=== PATIENT | female | born 1945 | race Caucasian/White ===

== ENCOUNTER → 2020-07-16 18:42 | Outpatient (ROUT) | payer OTHER, SELFPAY ==
[2020-07-16 19:23] LABS: Alanine Aminotransferase 27 IU/L (<35); Albumin 4.2 g/dL (3.5-5.0); Albumin Globulin Ratio 1.7 (1.0-2.8); Alkaline Phosphatase 44 U/L (38-126); Aspartate Aminotransferase 37 IU/L (14-36); BUN Creatinine Ratio 34.5 (6-22); Bilirubin Total 0.3 mg/dL (0.2-1.3); Blood Urea Nitrogen 20 mg/dL (7-17); Calcium 9.5 mg/dL (8.4-10.2); Carbon Dioxide 26 mmol/L (22-32); Chloride 107 mmol/L (98-107); Estimated Glomerular Filt Rate > 60.0 mL/min (>60); Globulin 2.5 g/dL (1.7-4.1); Glucose 135 mg/dL (80-110); HEMOLYSIS < 15 (0-50); Potassium 4.2 mmol/L (3.4-5.1); Sodium 138 mmol/L (137-145); Total Protein 6.7 g/dL (6.3-8.2)
[2020-07-16 19:38] LABS: Vitamin D 25 Hydroxy (D3) 102 ng/mL (30.0-100.0)
== END ==
PROVIDERS: Visit Provider Internal Medicine
DX: M81.0 Age-related osteoporosis without current pathological fracture (principal)
CPT/HCPCS: 80053; 82306

== ENCOUNTER → 2020-09-13 11:10 | Outpatient (CLI) | payer OTHER, SELFPAY ==
--- NOTE | 2020-09-13 | DI.MG.S_ITS ---
UNILATERAL RIGHT DIGITAL SCREENING MAMMOGRAM 3D/2D WITH CAD POST MASTECTOMY: 09/13/2020 CLINICAL: Routine screening. Personal history of left breast cancer. Comparison is made to exams dated: 03/28/2019 mammogram, 03/17/2018 mammogram, and 02/10/2017 mammogram - outside facility. There are scattered fibroglandular elements in right breast. Current study was also evaluated with a Computer Aided Detection (CAD) system. There are biopsy clips in the right breast. No significant masses, calcifications, or other findings are seen in the breast. There has been no significant interval change. IMPRESSION: NEGATIVE There is no mammographic evidence of malignancy. A 1 year screening mammogram is recommended. This exam was interpreted at Station ID: [id number]. NOTE: For mammograms, a report in lay terms will be sent to the patient. Approximately 15% of breast malignancies will not be visualized mammographically. In the management of a palpable breast mass, a negative mammogram must not discourage biopsy of a clinically suspicious lesion. Electronically Signed By: Ioana mackey/anjel:09/13/2020 12:19:03 letter sent: Normal Exam ACR BI-RADS Category 1: Negative 3341F
== END ==
PROVIDERS: PCP Internal Medicine; Referring Provider Internal Medicine; Visit Provider Internal Medicine
DX: Z12.31 Encounter for screening mammogram for malignant neoplasm of breast (principal); Z85.3 Personal history of malignant neoplasm of breast
CPT/HCPCS: 77063; 77067

== ENCOUNTER → 2021-02-20 10:12 | Outpatient (CLI) | payer OTHER, SELFPAY ==
--- NOTE | 2021-02-20 | DI.RAD.S_ITS ---
PROCEDURE: XR DEXA AXIAL SKELETON INDICATIONS: Age-related osteoporosis without current pathologi COMPARISON: None. FINDINGS: This blank DEXA report has been sent in error by the PACS system. The correct and complete report will be forthcoming in 1-2 days. Thank you for your patience and understanding. Dictated by: Lis Taylor MD, PhD on 02/20/2021 at 12:29 Approved by: Lis Taylor MD, PhD on 02/20/2021 at 12:29
== END ==
PROVIDERS: PCP Internal Medicine; Referring Provider Internal Medicine; Visit Provider Internal Medicine
DX: M85.851 Other specified disorders of bone density and structure, right thigh (principal); Z78.0 Asymptomatic menopausal state; Z85.3 Personal history of malignant neoplasm of breast
CPT/HCPCS: 77080

== ENCOUNTER → 2021-07-07 14:05 | Outpatient (CLI) | payer OTHER, SELFPAY ==
--- NOTE | 2021-07-07 14:08 | DI.RAD.S_ITS ---
PROCEDURE: XR TIBIA FIBULA LT 2V INDICATIONS: LEFT LEG PAIN TECHNIQUE: 2 views of the tibia and fibula were acquired. COMPARISON: None. FINDINGS: Bones: No fractures or dislocations. No suspicious bony lesions. Soft tissues: No suspicious soft tissue calcifications or masses. IMPRESSION: No acute fracture. No osseous lesion. If symptoms and/or clinical suspicion for pathology persist, further assessment with repeat, or advanced imaging (e.g., CT, MRI, or bone scan) may be helpful for further assessment. Dictated by: Chrissy Lowery M.D. on 07/07/2021 at 15:54 Approved by: Chrissy Lowery M.D. on 07/07/2021 at 16:52
== END ==
PROVIDERS: PCP Internal Medicine; Referring Provider Internal Medicine; Visit Provider Internal Medicine
DX: M79.605 Pain in left leg (principal)
CPT/HCPCS: 73590

== ENCOUNTER → 2021-09-18 10:02 | Outpatient (CLI) | payer OTHER, SELFPAY ==
--- NOTE | 2021-09-18 | DI.MG.S_ITS ---
UNILATERAL RIGHT DIGITAL SCREENING MAMMOGRAM 3D/2D WITH CAD: 09/18/2021 CLINICAL: Routine screening. Family history of breast cancer. Comparison is made to exams dated: 09/13/2020 mammogram - [facility], 03/28/2019 mammogram, and 03/17/2018 mammogram - outside facility. There are scattered fibroglandular elements in right breast. Current study was also evaluated with a Computer Aided Detection (CAD) system. There are biopsy clips in the right breast. No significant masses, calcifications, or other findings are seen in the breast. There has been no significant interval change. IMPRESSION: NEGATIVE There is no mammographic evidence of malignancy. A 1 year screening mammogram is recommended. This exam was interpreted at Station ID: [id number]. NOTE: For mammograms, a report in lay terms will be sent to the patient. Approximately 15% of breast malignancies will not be visualized mammographically. In the management of a palpable breast mass, a negative mammogram must not discourage biopsy of a clinically suspicious lesion. Electronically Signed By: Alvarez chambers/anjel:09/18/2021 11:24:48 letter sent: Normal Exam ACR BI-RADS Category 1: Negative 3341F
== END ==
PROVIDERS: PCP Internal Medicine; Referring Provider Internal Medicine; Visit Provider Internal Medicine
DX: Z12.31 Encounter for screening mammogram for malignant neoplasm of breast (principal); Z80.3 Family history of malignant neoplasm of breast
CPT/HCPCS: 77063; 77067

== ENCOUNTER 2022-08-27 08:36 | Day surgery (SDC) | payer OTHER, SELFPAY ==
[2022-08-27 08:59] VITALS: BP 171/79; PULSE 76; RESP 16; TEMP 36.2; O2SAT 96; BMI 21.7
[2022-08-27] MEDS: LACTATED RINGERS 1,000 ML 100 ML IV (09:06)
--- NOTE | 2022-08-27 09:59 | P.HP_ITS ---
History of Present Illness History of Present Illness Date Patient Seen: 08/27/22 Time Patient Seen: 09:59 Chief complaint: Colonoscopy Narrative: Sarahi is a 68-year-old woman here for colonoscopy. Her last 1 was about 5 years ago and she believes to polyps were removed. No known family history of colon cancer. ON LICENSE OF [facility] Medical History (Updated 08/27/22 @ 10:01 by Jude Davis MD) Allergies (~1966) Alopecia (~1979) Anxiety Breast cancer (~1984) Chicken pox Chronic back pain (~1976) Depression Glaucoma Hearing loss Hyperlipidemia Measles Osteopenia (~2021) Osteoporosis (~1989) Pancreatic cancer (~1994) Rosacea (~1979) Shoulder pain (~2011) Vision disorder Surgical History (Updated 07/06/22 @ 20:08 by Ruba Cool) Anesthesia History of breast reconstruction (~1989) History of cholecystectomy (~1994) History of left mastectomy (~1984) History of reduction surgery of right breast (~1989) History of tubal ligation (~1973) History of Whipple procedure (~1994) Family History (Updated 07/06/22 @ 20:10 by Ruba Cool) Mother Hypertension Sister Hypertension Son Cirrhosis Social History household members: spouse Smoking Status: Never smoker alcohol intake: current Meds Home Medications and Allergies Home Medications Medication Instructions Recorded Confirmed Type calcium carbonate 400 mg calcium 400 mg PO DAILY 07/07/22 08/27/22 History (1,000 mg) chewable tablet (Antacid Ultra Strength) cholecalciferol (vitamin D3) 50 50 mcg PO DAILY 07/07/22 08/27/22 History mcg (2,000 unit) capsule coenzyme Q10 75 mg capsule (Ultra 75 mg PO DAILY 07/07/22 08/27/22 History CoQ10) mecobalamin (vitamin B12) 500 mcg 500 mcg PO 07/07/22 07/07/22 History chewable tablet melatonin 5 mg capsule 2.5 mg PO 07/07/22 07/07/22 History rosuvastatin 5 mg tablet 5 mg PO DAILY #90 tabs 07/07/22 08/27/22 Rx timolol maleate 0.5 % eye drops 2 drp EYE-BOTH DAILY 07/07/22 08/27/22 History Allergies Allergy/AdvReac Type Severity Reaction Status Date / Time almond Allergy Swelling Verified 08/27/22 08:55 of Lip/Tongue/Throat Exam Vital Signs (past 8 hours): - 08/27/22 08:59 Temperature 97.2 F L Pulse Rate 76 Respiratory Rate 16 Blood Pressure 171/79 H Pulse Oximetry 96 Oxygen Delivery Method Room Air Oxygen Delivery Method Room Air Const General: healthy appearing Assessment & Plan Assessment and plan (1) History of colon polyps: Status: Acute Plan Sarahi is a 68-year-old woman here for colonoscopy. We reviewed the risks and benefits and she would like to proceed
--- NOTE | 2022-08-27 10:31 | PM.OP.COLON ---
Operative Date/Time/Diagnoses Date of procedure: 08/27/22 Time of procedure: 10:31 Pre-op diagnosis: Colon cancer screening Post-op diagnosis: same Procedure & Clinicians Study performed: Colonoscopy Same procedure as scheduled: Yes Surgeon: Jude Davis Procedure Notes Procedure in detail: Surgeon: Jude Davis MD Anesthesia: Geraldo Pineda CRNA Procedure: The patient was brought to the endoscopy suite, placed in left lateral decubitus position. The patient was connected to monitoring devices. A time-out was performed. Sedation was administered. Once the patient was adequately sedated, a digital rectal exam was performed and was normal. The scope was then inserted and advanced to the cecum where the appendiceal orifice was identified and photographed. The scope was then slowly withdrawn over greater than 6 minutes. The mucosa was thoroughly inspected. There were a few scattered diverticula in the sigmoid colon. The scope was retroflexed in the rectum. No other abnormalities were seen. The scope was straightened and removed. The patient was awakened and brought to recovery. Scope withdrawal time: 7 minutes Sedation time: 17 minutes EBL: 0 Findings: Rare scattered diverticula in the sigmoid Post-procedure Disposition: PACU
[2022-08-27 10:34] VITALS: BP 114/64; PULSE 70; RESP 14; TEMP 36.4; O2SAT 99
[2022-08-27 10:40] VITALS: BP 127/69; PULSE 73; RESP 14; TEMP 36.4; O2SAT 100
[2022-08-27 10:46] VITALS: BP 134/74; PULSE 72; RESP 14; TEMP 36.3; O2SAT 99
[2022-08-27 10:49] VITALS: BP 132/74; PULSE 70; RESP 16; TEMP 36.3; O2SAT 100
== END 2022-08-27 10:55 | disposition home or self-care (01) ==
PROVIDERS: PCP Family Medicine; Referring Provider Surgery; Visit Provider Surgery
PROC: 0DJD8ZZ Inspection of Lower Intestinal Tract, Via Natural or Artificial Opening Endoscopic (ICD-10-PCS; CPT 45378; principal; 2022-08-27 09:45)
DX: Z12.11 Encounter for screening for malignant neoplasm of colon (principal); K57.30 Diverticulosis of large intestine without perforation or abscess without bleeding
CPT/HCPCS: G0121; J2704

== ENCOUNTER → 2022-09-21 13:10 | Outpatient (CLI) | payer OTHER, SELFPAY ==
--- NOTE | 2022-09-21 | DI.MG.S_ITS ---
UNILATERAL RIGHT DIGITAL SCREENING MAMMOGRAM 3D/2D WITH CAD POST MASTECTOMY: 09/21/2022 CLINICAL: Routine screening. Personal history of left breast cancer. Family history of breast cancer. Comparison is made to exams dated: 09/18/2021 mammogram, 09/13/2020 mammogram - [facility], and 03/28/2019 mammogram - outside facility. The right breast is heterogeneously dense, which may obscure small masses (category c / 51-75% glandular tissue). Current study was also evaluated with a Computer Aided Detection (CAD) system. There are biopsy clips in the right breast. No significant masses, calcifications, or other findings are seen in the breast. There has been no significant interval change. IMPRESSION: NEGATIVE There is no mammographic evidence of malignancy. A 1 year screening mammogram is recommended. This exam was interpreted at Station ID: [id number]. NOTE: For mammograms, a report in lay terms will be sent to the patient. Approximately 15% of breast malignancies will not be visualized mammographically. In the management of a palpable breast mass, a negative mammogram must not discourage biopsy of a clinically suspicious lesion. Electronically Signed By: Clarita reynoso/anjel:09/21/2022 14:11:34 letter sent: Normal Exam ACR BI-RADS Category 1: Negative 3341F
== END ==
PROVIDERS: PCP Family Medicine; Referring Provider Family Medicine; Visit Provider Family Medicine
DX: Z12.31 Encounter for screening mammogram for malignant neoplasm of breast (principal); Z80.3 Family history of malignant neoplasm of breast; Z85.3 Personal history of malignant neoplasm of breast
CPT/HCPCS: 77063; 77067

== ENCOUNTER 2022-09-28 17:15 | Emergency (ER) | payer OTHER, SELFPAY ==
[2022-09-28 17:24] VITALS: BP 192/84; PULSE 96; RESP 16; TEMP 36.8; O2SAT 99; BMI 21.6
--- NOTE | 2022-09-28 17:29 | DI.RAD.S_ITS ---
PROCEDURE: XR ANKLE RT MIN 3V INDICATIONS: Injury TECHNIQUE: 3 views of the ankle were acquired. COMPARISON: None. FINDINGS: Bones: Spiral fracture of the distal fibula at the level of the syndesmosis with mild lateral displacement. Mildly displaced in slightly comminuted medial malleolar fracture. Slight widening of the ankle mortise along lateral margin. There is probably impacted posterior malleolar fracture. Soft tissues: There is of small joint effusion and lateral periarticular soft tissue swelling. IMPRESSION: 1. Mildly displaced bimalleolar and potentially trimalleolar ankle fracture with slight ankle mortise widening due to fracture at the syndesmosis. Dictated by: Ioana Hogde M.D. on 09/28/2022 at 18:21 Approved by: Ioana Hodge M.D. on 09/28/2022 at 18:24
--- NOTE | 2022-09-28 18:57 | ED.LOWEXIN ---
HPI - Extremity Injury (Lower) General Chief Complaint: Extremity Injury, Lower Stated Complaint: R ankle pain after fall on stairs Time Seen by Provider: 09/28/22 18:03 Source: patient Mode of arrival: Wheelchair Related Data Home Medications Medication Instructions Recorded Confirmed calcium carbonate 400 mg calcium 400 mg PO DAILY 07/07/22 08/27/22 (1,000 mg) chewable tablet (Antacid Ultra Strength) cholecalciferol (vitamin D3) 50 50 mcg PO DAILY 07/07/22 08/27/22 mcg (2,000 unit) capsule coenzyme Q10 75 mg capsule (Ultra 75 mg PO DAILY 07/07/22 08/27/22 CoQ10) mecobalamin (vitamin B12) 500 mcg 500 mcg PO 07/07/22 07/07/22 chewable tablet melatonin 5 mg capsule 2.5 mg PO 07/07/22 07/07/22 timolol maleate 0.5 % eye drops 2 drp EYE-BOTH DAILY 07/07/22 08/27/22 Previous Rx's Medication Instructions Recorded rosuvastatin 5 mg tablet 5 mg PO DAILY #90 tabs 07/07/22 Allergies Allergy/AdvReac Type Severity Reaction Status Date / Time almond Allergy Swelling Verified 08/27/22 08:55 of Lip/Tongue/Throat Review of Systems Review of Systems ROS Unobtainable: All systems reviewed & are unremarkable except as noted in HPI and below Constitutional Constitutional: Denies chills, Denies fatigue, Denies fever(s), Denies frequent falls, Denies lethargy and Denies weakness Eyes Eyes: Denies change in vision, Denies eye discharge, Denies irritation and Denies loss of vision ENT Ears, Nose, Mouth, and Throat: Denies change in voice, Denies dizziness, Denies neck pain, Denies sore throat and Denies throat swelling Cardiovascular Cardiovascular: Denies chest pain, Denies irregular heart rhythm, Denies lightheadedness, Denies palpitations, Denies dyspnea, Denies dyspnea on exertion and Denies orthopnea Respiratory Respiratory: Denies cough, Denies dyspnea, Denies dyspnea on exertion and Denies wheezing Gastrointestinal Gastrointestinal: Denies abdominal pain, Denies change in bowel habits, Denies diarrhea, Denies nausea and Denies vomiting Genitourinary Genitourinary: Denies hematuria, Denies flank pain, Denies urinary incontinence and Denies urinary urgency Musculoskeletal Musculoskeletal: Denies back pain, Denies muscle weakness, Denies neck pain, Denies numbness and Denies tingling Integumentary/Breasts Skin/Breast: Denies pruritus, Denies erythema, Denies rash and Denies wounds Neurologic Neurologic: Denies behavioral changes, Denies confusion, Denies dizziness, Denies frequent falls, Denies loss of vision, Denies numbness, Denies tingling and Denies weakness Psychiatric Psychiatric: Denies anxiety, Denies behavioral changes, Denies confusion, Denies depression, Denies homicidal ideation and Denies suicidal ideation Endocrine Endocrine: Denies fatigue, Denies flushing and Denies palpitations Hematologic/Lymphatic Hematologic/Lymphatic: Denies easy bruising Allergic/Immunologic Allergic/Immunologic: Denies urticaria, Denies throat swelling and Denies wheezing Patient History Medical History Allergies (~1966) Alopecia (~1979) Anxiety Breast cancer (~1984) Chicken pox Chronic back pain (~1976) Depression Glaucoma Hearing loss Hyperlipidemia Measles Osteopenia (~2021) Osteoporosis (~1989) Pancreatic cancer (~1994) Rosacea (~1979) Shoulder pain (~2011) Vision disorder Surgical History Anesthesia History of breast reconstruction (~1989) History of cholecystectomy (~1994) History of left mastectomy (~1984) History of reduction surgery of right breast (~1989) History of tubal ligation (~1973) History of Whipple procedure (~1994) Family History Mother Hypertension Sister Hypertension Son Cirrhosis Social History household members: spouse Smoking Status: Never smoker alcohol intake: current Smoking Status: Never smoker alcohol intake frequency: a few times a month Substance Use Type: does not use Exam Narrative Exam Narrative: Const General:?cooperative, healthy appearing and comfortable [facility] Head:?normal to inspection Ears:?hearing grossly normal bilaterally Nose:?external nose normal Face and sinus:?normal facial exam and sinuses nontender Mouth:?oral mucosae normal Throat:?posterior oropharynx normal Eyes General:?appearance normal, both eyes and all related structures Neck Neck:?normal visual inspection and no lymphadenopathy noted Resp Effort & Inspection:?normal respiratory effort Auscultation:?clear to auscultation bilaterally Cardio Rate:?regular rate Rhythm:?regular rhythm Neuro General:?patient alert, patient awake and patient oriented x3 Initial Vital Signs Initial Vital Signs: Vital Signs Temperature 98.3 F 09/28/22 17:24 Pulse Rate 96 H 09/28/22 17:24 Respiratory Rate 16 09/28/22 17:24 Blood Pressure 192/84 H 09/28/22 17:24 Pulse Oximetry 99 09/28/22 17:24 Oxygen Delivery Method Room Air 09/28/22 17:24 Course Orders Ordered: ED Orders 09/28/22 17:29 XR ankle RT min 3V Stat Vital Signs Vital signs: Vital Signs - 8 hr 09/28/22 17:24 Temperature 98.3 F Pulse Rate 96 H Respiratory Rate 16 Blood Pressure 192/84 H Pulse Oximetry 99 Oxygen Delivery Method Room Air Discharge Plan Departure Prescriptions: No Action timolol maleate 0.5 % drops 2 drp EYE-BOTH DAILY mecobalamin (vitamin B12) 500 mcg tablet,chewable 500 mcg PO cholecalciferol (vitamin D3) 50 mcg (2,000 unit) capsule 50 mcg PO DAILY Ultra CoQ10 75 mg capsule 75 mg PO DAILY Rx Instructions: 100 mg calcium carbonate [Antacid Ultra Strength] 400 mg calcium (1,000 mg) tablet,chewable 400 mg PO DAILY melatonin 5 mg capsule 2.5 mg PO rosuvastatin 5 mg tablet 5 mg PO DAILY Qty: 90 3RF Referrals: Palomo Ziegler, [Primary Care Provider] -
--- NOTE | 2022-09-28 19:42 | ED.LOWEXIN ---
HPI - Extremity Injury (Lower) General Chief Complaint: Extremity Injury, Lower Stated Complaint: R ankle pain after fall on stairs Time Seen by Provider: 09/28/22 18:03 Source: patient Mode of arrival: Wheelchair History of Present Illness HPI Narrative: Patient healthy 76-year-old female who presents today with right ankle pain and injury. She said she was going down the stairs when she slipped landing on her bottom. Has significant pain in right ankle nonweightbearing. She did not hit her head or lose consciousness she is no hip pain or knee pain. Not on antiplatelet or anticoagulation medication. Related Data Home Medications Medication Instructions Recorded Confirmed calcium carbonate 400 mg calcium 400 mg PO DAILY 07/07/22 08/27/22 (1,000 mg) chewable tablet (Antacid Ultra Strength) cholecalciferol (vitamin D3) 50 50 mcg PO DAILY 07/07/22 08/27/22 mcg (2,000 unit) capsule coenzyme Q10 75 mg capsule (Ultra 75 mg PO DAILY 07/07/22 08/27/22 CoQ10) mecobalamin (vitamin B12) 500 mcg 500 mcg PO 07/07/22 07/07/22 chewable tablet melatonin 5 mg capsule 2.5 mg PO 07/07/22 07/07/22 timolol maleate 0.5 % eye drops 2 drp EYE-BOTH DAILY 07/07/22 08/27/22 Previous Rx's Medication Instructions Recorded rosuvastatin 5 mg tablet 5 mg PO DAILY #90 tabs 07/07/22 hydrocodone 5 mg-acetaminophen 325 1 tab PO Q6H PRN pain #14 tabs 09/28/22 mg tablet Allergies Allergy/AdvReac Type Severity Reaction Status Date / Time almond Allergy Swelling Verified 08/27/22 08:55 of Lip/Tongue/Throat Review of Systems Review of Systems ROS Unobtainable: All systems reviewed & are unremarkable except as noted in HPI and below Patient History Medical History Allergies (~1966) Alopecia (~1979) Anxiety Breast cancer (~1984) Chicken pox Chronic back pain (~1976) Depression Glaucoma Hearing loss Hyperlipidemia Measles Osteopenia (~2021) Osteoporosis (~1989) Pancreatic cancer (~1994) Rosacea (~1979) Shoulder pain (~2011) Vision disorder Surgical History Anesthesia History of breast reconstruction (~1989) History of cholecystectomy (~1994) History of left mastectomy (~1984) History of reduction surgery of right breast (~1989) History of tubal ligation (~1973) History of Whipple procedure (~1994) Family History Mother Hypertension Sister Hypertension Son Cirrhosis Social History household members: spouse Smoking Status: Never smoker alcohol intake: current Smoking Status: Never smoker alcohol intake frequency: a few times a month Substance Use Type: does not use Exam Initial Vital Signs Initial Vital Signs: Vital Signs Temperature 98.3 F 09/28/22 17:24 Pulse Rate 96 H 09/28/22 17:24 Respiratory Rate 16 09/28/22 17:24 Blood Pressure 192/84 H 09/28/22 17:24 Pulse Oximetry 99 09/28/22 17:24 Oxygen Delivery Method Room Air 09/28/22 17:24 GENERAL: Alert pleasant 68-year-old female no acute distress and in no acute distress. HEENT: Head atraumatic,EOMI, pupils reactive, face symmetric, moist mucous membranes CARDIOVASCULAR: Regular rate and rhythm without murmurs, rubs or gallops. RESPIRATORY: Breath sounds equal bilaterally, no wheezes rales or rhonchi. ABDOMEN: Soft, nontender. Normoactive bowel sounds all 4 quadrants. No guarding or rebound. EXTREMITIES: Normal range of motion, no clubbing or edema. Neurovascularly intact Right lower extremity mild swelling distal pedal pulse intact moving toes good cap refill knee is stable no hip or pelvis pain NEUROLOGICAL: Alert and oriented x4. SKIN: Warm, dry, no laceration, no petechiae, no rashes or lesions. Procedures Orthopedic Splinting/Casting Injury #1: Lower Extremity Injury Location: ankle Lower Extremity Immobilizer: posterior splint and stirrup splint Other Orthopedic Equipment: crutches Post splinting neuro exam: intact and no change Post splinting vascular exam: intact Placed by: Nursing Course Orders Ordered: Discontinued Medications Hydrocodone Bitart/Acetaminophen (Hydrocodone/Acet 5/325 Prepack) 1 bottle MISC SEEINSTR ONE Stop: 09/28/22 20:01 Vital Signs Vital signs: Vital Signs - 8 hr 09/28/22 19:46 Pulse Rate 69 Respiratory Rate 18 Blood Pressure 147/86 H Pulse Oximetry 97 Oxygen Delivery Method Room Air MDM - Extremity Injury (Lower) Imaging Data Extremity x-ray #1: Radiologist's Impression: PROCEDURE:? XR ANKLE RT MIN 3V ? INDICATIONS:? Injury ? TECHNIQUE:? 3 views of the ankle were acquired.? ? COMPARISON:? None. ? FINDINGS:? ? Bones:? Spiral fracture of the distal fibula at the level of the syndesmosis with mild lateral displacement.? Mildly displaced in slightly comminuted medial malleolar fracture. ?Slight widening of the ankle mortise along lateral margin.? There is probably impacted posterior malleolar fracture. ? Soft tissues:? There is of small joint effusion and lateral periarticular soft tissue swelling. ? ? IMPRESSION:? ? 1. Mildly displaced bimalleolar and potentially trimalleolar ankle fracture with slight ankle mortise widening due to fracture at the syndesmosis.? Dictated by: Ioana Hodge M.D. on 09/28/2022 at 18:21 ? ? [facility] Narrative Medical decision making narrative: 68-year-old healthy female presents today with right ankle pain found to have bimalleolar possible trimalleolar fracture. She actually is handling pain very well. His easily splinted. Dr. Cullen orthopedics is consulted agrees will likely need surgery. Discharge Plan Departure Patient Disposition: Home Clinical Impression: Ankle fracture, right Instructions: DI for Ankle Fracture Activity Restrictions/Additional Instructions: *You have been diagnosed with right ankle fracture *What to do: At this time keep splint on at all times. Put a bag on it while bathing. No weight-bearing. Elevate and ice as needed. This will likely require surgery. Please call orthopedics tomorrow to schedule follow-up appointment. *Continue to take medications as directed [place] 1 tablet every 6 hours if needed for pain *Follow up with your primary care provider in 2-3 days or call [phone] Call orthopedics tomorrow *Return to ER if you should have increased pain numbness tingling, swelling or any new, worsening or concerning symptoms CONTROLLED SUBSTANCE DISCHARGE (Narcotoic/benzodiazepine/Flexeril/Phenergan) 1. You have been prescribed narcotic medications, it does have acetaminophen/Tylenol/paracetamol in it, DO NOT TAKE MORE THAN 4,00mg in 24 hours of Tylenol. TRAMADOL DOES NOT CONTAIN TYLENOL 2. Please understand that we cannot provide further refills of narcotics, benzodiazepines or controlled substances through the ED and her pain management will need to be through your provider. 3. While on these medications you cannot drive or operate heavy machinery. 4. You cannot sign legal documents or perform any duties such as this. 5. As long as you're taking opiate pain medications he should also be taking a stool softener such as Colace, Dulcolax, MiraLAX or prune juice, to help avoid constipation. Prescriptions: New hydrocodone-acetaminophen 5-325 mg tablet 1 tab PO Q6H PRN (Reason: pain) Qty: 14 0RF No Action timolol maleate 0.5 % drops 2 drp EYE-BOTH DAILY mecobalamin (vitamin B12) 500 mcg tablet,chewable 500 mcg PO cholecalciferol (vitamin D3) 50 mcg (2,000 unit) capsule 50 mcg PO DAILY Ultra CoQ10 75 mg capsule 75 mg PO DAILY Rx Instructions: 100 mg calcium carbonate [Antacid Ultra Strength] 400 mg calcium (1,000 mg) tablet,chewable 400 mg PO DAILY melatonin 5 mg capsule 2.5 mg PO rosuvastatin 5 mg tablet 5 mg PO DAILY Qty: 90 3RF Referrals: [facility] [Provider Group] Gill Cottrell MD [Physician] - Palomo Ziegler DO [Primary Care Provider] - Stand Alone Forms: Patient Portal/API
[2022-09-28 19:46] VITALS: BP 147/86; PULSE 69; RESP 18; O2SAT 97
== END 2022-09-28 20:32 | disposition home or self-care (01) ==
PROVIDERS: Emergency Provider Emergency Medicine; PCP Family Medicine
DX: S82.891A Other fracture of right lower leg, initial encounter for closed fracture (principal); W01.0XXA Fall on same level from slipping, tripping and stumbling without subsequent striking against object, initial encounter
CPT/HCPCS: 73610; 99283

== ENCOUNTER → 2022-09-30 10:05 | Outpatient (CLI) | payer OTHER, SELFPAY ==
--- NOTE | 2022-09-30 10:15 | DI.CT.S_ITS ---
PROCEDURE: CT LE RT WO CON INDICATIONS: Displaced trimalleolar fracture of right lower leg TECHNIQUE: Noncontrast 1-1.5 mm axial sections acquired from above the tibiotalar joint to the bottom of the calcaneus, with coronal and sagittal reformats. COMPARISON: [facility], CR, XR ANKLE RT MIN 3V, 09/28/2022, 17:37. FINDINGS: Image quality: Excellent. Bones: As seen on ankle radiograph, there is an acute comminuted fracture involving distal tibia with fracture lines extending to involve base of medial malleolus, central and posterior aspect of distal tibial plafond. There is slight anterior and lateral displacement of medial malleolus fragment and up to 9 millimeter diastasis at fracture site anteriorly. Small posterior and laterally displaced distal tibial fragment is also seen with up to 2 millimeter diastasis at fracture site. Acute comminuted fracture involving distal fibular shaft/lateral malleolus is also seen with posterior and slight lateral displacement at fracture site and up to 3 millimeter diastasis. A small medially displaced fractured fragment is also noted. There is slight up to 2 millimeter depression at posterior distal tibial plafond fracture site. No other fracture or dislocation is seen. Moderate midfoot and hindfoot joint osteoarthritic changes are noted. Suggestion of small osteochondral injuries involving medial weight-bearing portion of talar dome are seen measures up to 6 millimeter in size. No suspicious bony lesions. Soft tissues: There is moderate tibiotalar joint effusion. No definite calcified intra-articular loose body is seen. No abnormal soft tissue calcifications. No gross full-thickness ankle tendon rupture. Significant soft tissue swelling and edema surrounding trimalleolar fracture site is seen. IMPRESSION: 1. Acute comminuted and slightly displaced trimalleolar fracture of right ankle as described in detail above. 2. Osteoarthritic changes throughout midfoot and hindfoot joints with suggestion of small osteochondral injuries involving medial weight-bearing portion of talar dome. 3. Moderate tibiotalar joint effusion, no definite calcified intra-articular loose bodies. No full-thickness ankle tendon rupture. Dictated by: Roberto Carlos Cullen M.D. on 09/30/2022 at 12:58 Approved by: Roberto Carlos Cullen M.D. on 09/30/2022 at 13:16
== END ==
PROVIDERS: PCP Family Medicine; Referring Provider Orthopaedic Surgery Foot and Ankle Surgery; Visit Provider Orthopaedic Surgery Foot and Ankle Surgery
DX: S82.851A Displaced trimalleolar fracture of right lower leg, initial encounter for closed fracture (principal); M25.471 Effusion, right ankle
CPT/HCPCS: 73700

== ENCOUNTER 2022-10-02 06:28 | Day surgery (SDC) | payer OTHER, SELFPAY ==
[2022-09-30 13:54] VITALS: BMI 22.2
--- NOTE | 2022-10-02 | DI.RAD.S_ITS ---
PROCEDURE: XR ANKLE RT 2V INDICATIONS: ORIF RIGHT ANKLE TECHNIQUE: 5 views of the ankle were acquired. COMPARISON: [facility], CT, CT LE RT WO CON, 09/30/2022, 10:15. [facility], CR, XR ANKLE RT MIN 3V, 09/28/2022, 17:37. FINDINGS: 5 intraoperative fluoroscopy images demonstrate ORIF of trimalleolar fractures. IMPRESSION: Fluoroscopy for ORIF of trimalleolar fracture. Dictated by: Quintin Toth M.D. on 10/02/2022 at 13:46 Approved by: Quintin Toth M.D. on 10/02/2022 at 13:48
[2022-10-02 06:48] VITALS: BP 166/90; PULSE 74; RESP 16; TEMP 36.5; O2SAT 98; BMI 22.2
--- NOTE | 2022-10-02 07:20 | PM.PREOP ---
Pre-operative Note Interval Note History & Physical reviewed/Exam performed by Physician: Yes Changes to H&P: No
[2022-10-02] MEDS: LACTATED RINGERS 1,000 ML 42 ML IV ×2 (07:22→09:59)
[2022-10-02] MEDS: CEFAZOLIN 2 GM/100 ML PREMIX 100 ML IV (08:05)
--- NOTE | 2022-10-02 08:40 | SUR.OPER ---
Upon entering OR, iv was assessed and found to be infiltrated. Right arm very swollen at AC site and above. IV removed and new IV placed by Dr. Ndiaye in right wrist.
--- NOTE | 2022-10-02 08:44 | SUR.OPER ---
Supine on padded OR bed, head on pillow, arms secured on padded arm boards at <90 degrees abduction, legs uncrossed, safety belt at abdomen, tape over blanket over lower left leg. Right leg bolstered with secured blanket bump, right arm supported by additional blanket padding.
[2022-10-02] MEDS: BUPIVACAINE 0.25% (PF) 30 ML, EPINEPHrine 0.15 MG INJ (08:51)
[2022-10-02 10:41] VITALS: BP 135/71; PULSE 71; RESP 10; TEMP 36.4; O2SAT 99
[2022-10-02 10:46] VITALS: BP 149/80; PULSE 78; RESP 12; O2SAT 98
[2022-10-02 10:51] VITALS: BP 144/78; PULSE 73; RESP 12; O2SAT 95
[2022-10-02 10:57] VITALS: BP 146/75; PULSE 71; RESP 18; O2SAT 92
[2022-10-02] MEDS: ONDANSETRON 4 MG/2 ML INJ IV (10:57)
[2022-10-02 11:50] VITALS: BP 138/71; PULSE 74; RESP 18; TEMP 36.4; O2SAT 98
--- NOTE | 2022-10-02 12:12 | SUR.PHASEII ---
DC instructions given to patient and daughter. Daughter helped dress. Denies pain, N/V resolved. Daughter helping dress patient. taken to car via WC. All questions answered.
--- NOTE | 2022-10-02 12:58 | P.OP_ITS ---
Operative Date/Time/Diagnoses Date of procedure: 10/02/22 Time of procedure: 08:00 Pre-op diagnosis: Displaced comminuted tibial pilon fracture right, closed Distal fibula fracture right, closed Osteopenia Post-op diagnosis: same Procedure & Clinicians Procedure: Open reduction internal internal fixation right pilon fracture tibia and fibula with hindfoot arthrodesis roxy. CPT code 81233, right Same procedure as scheduled: Yes Indications: The patient is a 76-year-old female with a history of osteoporosis and many years of Fosamax. States most recent DEXA was osteopenia now. She sustained an injury to her right lower extremity when she fell down stairs and sustained a comminuted right ankle pilon fracture with distal fibula fracture. This was a comminuted intra-articular fracture it was multi fragmentary with joint depression. 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 We discussed symptoms can vary. We discussed options for open reduction internal fixation arthrodesis rodding, and formal ankle arthrodesis. She has substantial swelling. We discussed staged fixation options. Regarding her soft tissues activity level and to promote early mobilization we discussed internal fixation with a hindfoot roxy. We discussed the stiffened the ankle but will allow early weight-bearing and a minimally invasive technique. Discussed if there is persistent pain after healing there are options for hardware removal and or additional surgeries with formal fusions or potentially ankle replacement. She is interested in a surgery that will allow early weight-bearing and minimize risks of additional surgeries for soft tissue complications. I have recommended hindfoot roxy without formal joint preparation. The risks and benefits of the procedure have been discussed with the patient and given the opportunity to ask questions. The risks of surgery include but are not limited to infection, malunion, nonunion, persistence of pain, damage to nerves and blood vessels, posttraumatic arthritis, DVT, PE, cardiopulmonary complications and . The patient expressed a thorough understanding of the risks and benefits of surgery and has elected to proceed. Consent was signed. Surgeon: Elo Ovalle Click Yes if Unassisted: Yes Anesthesia Type: General, Peripheral nerve block and Local Operative Notes Findings: Soft tissue swelling. No skin wrinkles present. Ecchymosis. No blisters. Fragile soft tissue envelope at the medial and lateral ankle. Comminuted tibial plafond fracture with distal fibula fracture. There is posterior subluxation of the talus. This was reduced. Guidewire was placed across the subtalar and tibiotalar joints. And the fracture was stabilized with a [employer] hindfoot arthrodesis roxy. Closure Type: primary Specimen(s): none sent Prosthetic devices, grafts, tissues, transplants, or devices: [employer] ankle arthrodesis rods titanium alloy 10 mm x 180 mm 5 mm interlocking screws length 28 mm 22 mm 70 mm 34 mm and 38 mm Estimated Blood Loss (mL): 200 Blood products transfused: none Tourniquet time (min): 0 Procedure in detail: Patient was seen in the preoperative holding area and the appropriate limb and side of surgery was marked. The consent form was confirmed the patient final questions answered. Patient was then brought back to the operating room and placed on the operating table. A postoperative regional block was performed by the anesthesia team. The patient was then given an anesthetic and the airway was secured. Prophylactic IV antibiotics were administered. the patient was appropriately positioned and padded. All bony prominences were well-padded. A ipsilateral thigh bump was placed. A well-padded thigh tourniquet was placed on the operative extremity. An SCD was placed on the contralateral extremity. Formal time-out procedure was performed confirming the patient's side and site of surgery presence of informed consent and administration of appropriate preoperative antibiotics. All were in agreement and the appropriate implants were present. No tourniquet was utilized. Fluoroscopy unit was brought in and the location of the tibiotalar and subtalar joint and bony landmarks were marked out as well as the midline of the tibia in the AP and lateral planes and the midline of the calcaneus. The fracture was noted to include posterior subluxation of the talus other for bump was placed under the heel and this was corrected on the table to hold in acceptable alignment of the tibiotalar joint. Fluoroscopy unit was brought in to localize the starting point for the hindfoot nail. An a line drawn from the lateral tibial canal and the lateral a 3rd of the foot were inspected to establish the proximal starting. Once the starting point was determined on multiple views we placed a guidewire in our proposed location located centrally within the calcaneus talus and tibia. the plantar incision was then extended approximately 3 cm longitudinally to allow for the soft tissue protector. Then used our step starter drill into the calcaneus and talus in a crossed the distal aspect of the tibia. the guidewire was removed and exchanged for a ball-tipped guidewire. We then sequentially reamed starting at 8 and then going up to an 11 for a 10 mm nail. [employer] [place] 10 mm x 180 mm TTC nail was placed. We maintained our alignment of the ankle and subtalar joints and progressive placed our screws in the roxy. The proximal tibial shaft locking screws were placed 1st followed by The talar screw. We then placed the lateral calcaneal screw. the P to A calcaneal screw was also placed. We were satisfied with our fixation and alignment. fluoroscopic images looked excellent. The guide was removed. No end cap was used. The wounds were irrigated and closed with 4-0 Monocryl and 3- 0 nylon. Additional local anesthetic was injected for postoperative pain control. A A Sterile bulky dressing and splint were applied. The patient was then transferred to the recovery room in good condition. Complications: none Post-operative Condition: stable Disposition: PACU Plan for aftercare: Patient will be nonweightbearing for 2 weeks after surgery. At that time she will return to clinic. If her stitches are ready then they will come out and at that time the patient will go into a tall walking boot and will be allowed to be weightbear as tolerated with assistive devices. (must use assistive devices for 1st 6 weeks). She has a rigid hindfoot arthrodesis rods so there will not be any expected dorsiflexion through the ankle or inversion eversion through the subtalar joint. There will be some motion through her foot at her talonavicular joint and. If her sutures require more time they will be maintained for 4-6 weeks. All weight-bearing should be done in the protective boot. The boot can come off at night after placement at the 2 week postop. Patient will follow-up for x-rays at her 6 week appointment. She will use aspirin for DVT prophylaxis for 6 weeks postop
== END 2022-10-02 12:24 | disposition home or self-care (01) ==
PROVIDERS: PCP Family Medicine; Referring Provider Orthopaedic Surgery Foot and Ankle Surgery; Visit Provider Orthopaedic Surgery Foot and Ankle Surgery
PROC: 0SSF04Z Reposition Right Ankle Joint with Internal Fixation Device, Open Approach (ICD-10-PCS; CPT 27827; principal; 2022-10-02 07:45)
DX: S82.871A Displaced pilon fracture of right tibia, initial encounter for closed fracture (principal); S82.831A Other fracture of upper and lower end of right fibula, initial encounter for closed fracture; W10.9XXA Fall (on) (from) unspecified stairs and steps, initial encounter; Y92.9 Unspecified place or not applicable; G89.18 Other acute postprocedural pain
CPT/HCPCS: 27827; 64450; 73600; 76000; J0171; J0690; J1100; J2250; J2405; J2704; J3010

== ENCOUNTER → 2023-01-02 07:50 | Outpatient (CLI) | payer OTHER, SELFPAY ==
[2023-01-02 08:59] LABS: Add Manual Diff / Slide Review NO; Basophils Absolute Auto 0 /uL (0-100); Basophils Percent Auto 0.8 % (0-2); Eosinophils Absolute Auto 100 /uL (0-450); Eosinophils Percent Auto 3.4 % (2-4); Hematocrit 35.2 % (36-46); Hemoglobin 11.9 g/dL (12.0-16.0); Lymphocytes Absolute Auto 1300 /uL (1100-4500); Lymphocytes Percent Auto 31.9 % (25-40); Mean Corpuscular HGB Conc 33.9 % (30-36); Mean Corpuscular Volume 94.5 fL (80-100); Monocytes Absolute Auto 300 /uL (0-900); Monocytes Percent Auto 6.4 % (3-14); Neutrophils Absolute Auto 2400 /uL (1500-7000); Neutrophils Percent Auto 57.5 % (50-75); Platelet Count 210 X10^3/uL (150-400); Red Blood Cell Count 3.72 X10^6/uL (4.0-5.2); Red Cell Distribution Width 13.9 % (11.6-14.8); White Blood Cell Count 4.2 X10^3/uL (4.5-11.0)
[2023-01-02 09:22] LABS: Alanine Aminotransferase 18 IU/L (<35); Albumin 3.9 g/dL (3.5-5.0); Albumin Globulin Ratio 1.4 (1.0-2.8); Alkaline Phosphatase 59 U/L (38-126); Aspartate Aminotransferase 28 IU/L (14-36); BUN Creatinine Ratio 28.1 (6-22); Bilirubin Total 0.4 mg/dL (0.2-1.3); Blood Urea Nitrogen 16 mg/dL (7-17); Calcium 8.9 mg/dL (8.4-10.2); Carbon Dioxide 28 mmol/L (22-32); Chloride 104 mmol/L (98-107); Cholesterol 171 mg/dL (140-199); Estimated Glomerular Filt Rate > 60 mL/min (>60); Globulin 2.8 g/dL (1.7-4.1); Glucose 86 mg/dL (80-110); HDL Cholesterol 75 mg/dL (40-60); HEMOLYSIS < 15 (0-50); LDL Cholesterol Calculated 75 mg/dL (<100); Potassium 4.3 mmol/L (3.4-5.1); Sodium 138 mmol/L (137-145); Total Protein 6.7 g/dL (6.3-8.2); Triglycerides 105 mg/dL (35-150)
[2023-01-02 09:52] LABS: TSH w/ Reflex to FT4 2.26 uIU/mL (0.47-4.68)
== END ==
PROVIDERS: PCP Family Medicine; Referring Provider Family Medicine; Visit Provider Family Medicine
DX: E78.5 Hyperlipidemia, unspecified (principal); H40.9 Unspecified glaucoma; M85.80 Other specified disorders of bone density and structure, unspecified site
CPT/HCPCS: 36415; 80053; 80061; 84443; 85025

== ENCOUNTER → 2023-02-16 10:00 | Outpatient (CLI) | payer OTHER, SELFPAY ==
[2023-02-16 11:08] LABS: Add Manual Diff / Slide Review NO; Basophils Absolute Auto 100 /uL (0-100); Eosinophils Absolute Auto 100 /uL (0-450); Eosinophils Percent Auto 1.8 % (2-4); Hematocrit 34.6 % (36-46); Hemoglobin 11.6 g/dL (12.0-16.0); Lymphocytes Absolute Auto 1200 /uL (1100-4500); Lymphocytes Percent Auto 23.1 % (25-40); Mean Corpuscular HGB Conc 33.5 % (30-36); Mean Corpuscular Hemoglobin 31.2 PG (26-34); Mean Corpuscular Volume 93.2 fL (80-100); Monocytes Absolute Auto 300 /uL (0-900); Monocytes Percent Auto 6.2 % (3-14); Neutrophils Absolute Auto 3600 /uL (1500-7000); Neutrophils Percent Auto 67.9 % (50-75); Platelet Count 232 X10^3/uL (150-400); Red Blood Cell Count 3.71 X10^6/uL (4.0-5.2); Red Cell Distribution Width 14.2 % (11.6-14.8); White Blood Cell Count 5.3 X10^3/uL (4.5-11.0)
[2023-02-16 11:43] LABS: HEMOLYSIS < 15 (0-50); Iron 120 ug/dL (37-170)
[2023-02-16 11:52] LABS: Percent Iron Saturation 31 % (15-50); Total Iron Binding Capacity 391 ug/dL (265-497); Transferrin 281 mg/dL (206-381)
[2023-02-16 12:28] LABS: Vitamin B12 988 pg/mL (239-931)
== END ==
PROVIDERS: PCP Family Medicine; Referring Provider Family Medicine; Visit Provider Family Medicine
DX: E78.5 Hyperlipidemia, unspecified (principal); D64.9 Anemia, unspecified
CPT/HCPCS: 36415; 82607; 83540; 83550; 85025

== ENCOUNTER → 2023-08-20 10:12 | Outpatient (CLI) | payer MEDICARE, SELFPAY ==
--- NOTE | 2023-08-20 10:13 | DI.RAD.S_ITS ---
PROCEDURE: XR DEXA AXIAL SKELETON INDICATIONS: Osteoporosis Osteopenia COMPARISON: [facility], CR, XR DEXA AXIAL SKELETON, 02/20/2021, 10:40. FINDINGS: Lumbar Spine: Bone mineral density 0.956 g/cm2, T score -0.8. Left Hip: Bone mineral density is 0.834 g/cm2, T score -0.9. Left Femoral Neck: Bone mineral density 0.838 g/cm2, T score -0.1. Right Hip: Bone mineral density 0.799 g/cm2, T score -1.2. Right Femoral Neck: Bone mineral density 0.742 g/cm2, T score -1.0. Fracture Risk Calculation (when applicable): 10-year fracture risk of a major osteoporotic fracture 16% and of a hip fracture 3.7%. (T score greater or equal to -1.0 to: NORMAL) (T score from -1.1 to -2.4: OSTEOPENIA) (T score less than or equal to -2.5: OSTEOPOROSIS) IMPRESSION: Osteopenia. Dictated by: Danny Lala M.D. on 08/20/2023 at 21:24 Approved by: Danny Lala M.D. on 08/20/2023 at 21:26
== END ==
LOC: RAD 10:12
PROVIDERS: PCP Family Medicine; Referring Provider Family Medicine; Visit Provider Family Medicine
DX: M81.0 Age-related osteoporosis without current pathological fracture (principal)
CPT/HCPCS: 77080

== ENCOUNTER → 2023-09-07 14:14 | Outpatient (CLI) | payer MEDICARE, SELFPAY ==
[2023-09-07 14:59] LABS: Add Manual Diff / Slide Review NO; Basophils Absolute Auto 0 /uL (0-100); Basophils Percent Auto 0.9 % (0-2); Eosinophils Absolute Auto 100 /uL (0-450); Eosinophils Percent Auto 1.7 % (2-4); Hematocrit 36.2 % (36-46); Hemoglobin 12.2 g/dL (12.0-16.0); Lymphocytes Absolute Auto 1400 /uL (1100-4500); Lymphocytes Percent Auto 26.2 % (25-40); Mean Corpuscular HGB Conc 33.7 % (30-36); Mean Corpuscular Volume 94.9 fL (80-100); Monocytes Absolute Auto 300 /uL (0-900); Monocytes Percent Auto 6.2 % (3-14); Neutrophils Absolute Auto 3500 /uL (1500-7000); Platelet Count 223 X10^3/uL (150-400); Red Blood Cell Count 3.81 X10^6/uL (4.0-5.2); Red Cell Distribution Width 13.9 % (11.6-14.8); White Blood Cell Count 5.4 X10^3/uL (4.5-11.0)
[2023-09-07 15:09] LABS: Reticulocyte Count, Percent 1.3 % (1.1-2.6)
[2023-09-07 15:17] LABS: HEMOLYSIS < 15 (0-50); Iron 128 ug/dL (37-170)
[2023-09-07 15:21] LABS: Alanine Aminotransferase 22 IU/L (<35); Albumin 4.5 g/dL (3.5-5.0); Albumin Globulin Ratio 1.7 (1.0-2.8); Alkaline Phosphatase 61 U/L (38-126); Aspartate Aminotransferase 35 IU/L (14-36); BUN Creatinine Ratio 35.2 (6-22); Bilirubin Total 0.5 mg/dL (0.2-1.3); Blood Urea Nitrogen 19 mg/dL (7-17); Calcium 9.9 mg/dL (8.4-10.2); Carbon Dioxide 29 mmol/L (22-32); Chloride 103 mmol/L (98-107); Estimated Glomerular Filt Rate > 60 mL/min (>60); Globulin 2.6 g/dL (1.7-4.1); Glucose 77 mg/dL (80-110); HEMOLYSIS < 15 (0-50); Potassium 4.2 mmol/L (3.4-5.1); Sodium 137 mmol/L (137-145); Total Protein 7.1 g/dL (6.3-8.2)
[2023-09-07 15:33] LABS: Percent Iron Saturation 34 % (15-50); Total Iron Binding Capacity 378 ug/dL (265-497); Transferrin 315 mg/dL (206-381)
[2023-09-07 16:04] LABS: Vitamin B12 888 pg/mL (239-931)
== END ==
PROVIDERS: PCP Family Medicine; Referring Provider Family Medicine; Visit Provider Family Medicine
DX: D64.9 Anemia, unspecified (principal); E78.5 Hyperlipidemia, unspecified; M81.0 Age-related osteoporosis without current pathological fracture
CPT/HCPCS: 36415; 80053; 82607; 83540; 83550; 85025; 85045

== ENCOUNTER → 2023-10-08 09:14 | Outpatient (CLI) | payer MEDICARE, SELFPAY ==
--- NOTE | 2023-10-08 | DI.MG.S_ITS ---
UNILATERAL RIGHT DIGITAL SCREENING MAMMOGRAM 3D/2D WITH CAD: 10/08/2023 CLINICAL: Routine screening. Personal history of left breast cancer. Family history of breast cancer. Comparison is made to exams dated: 09/21/2022 mammogram, 09/18/2021 mammogram, and 09/13/2020 mammogram - [facility]. The right breast is heterogeneously dense, which may obscure small masses (category c / 51-75% glandular tissue). Current study was also evaluated with a Computer Aided Detection (CAD) system. There are biopsy clips in the right breast. No significant masses, calcifications, or other findings are seen in the breast. There has been no significant interval change. IMPRESSION: BENIGN There is no mammographic evidence of malignancy. A 1 year screening mammogram is recommended. This exam was interpreted at Station ID: [id number]. NOTE: For mammograms, a report in lay terms will be sent to the patient. Approximately 15% of breast malignancies will not be visualized mammographically. In the management of a palpable breast mass, a negative mammogram must not discourage biopsy of a clinically suspicious lesion. Electronically Signed By: Yoanna Saleh M.D., Ph.D. [email or web address]:10/08/2023 09:54:35 letter sent: Normal Exam ACR BI-RADS Category 2: Benign Finding(s) 3342F
== END ==
LOC: MAMMO 09:15
PROVIDERS: PCP Family Medicine; Referring Provider Family Medicine; Visit Provider Family Medicine
DX: Z12.31 Encounter for screening mammogram for malignant neoplasm of breast (principal); Z85.3 Personal history of malignant neoplasm of breast; Z80.3 Family history of malignant neoplasm of breast; R92.331 Mammographic heterogeneous density, right breast
CPT/HCPCS: 77063; 77067

== ENCOUNTER → 2024-02-04 10:40 | Outpatient (CLI) | payer OTHER, SELFPAY ==
[2024-02-04 12:46] LABS: Add Manual Diff / Slide Review NO; Basophils Absolute Auto 0 /uL (0-100); Basophils Percent Auto 0.8 % (0-2); Eosinophils Absolute Auto 100 /uL (0-450); Eosinophils Percent Auto 2.5 % (2-4); Hematocrit 38.5 % (36-46); Hemoglobin 13.1 g/dL (12.0-16.0); Lymphocytes Absolute Auto 1200 /uL (1100-4500); Lymphocytes Percent Auto 25.1 % (25-40); Mean Corpuscular Hemoglobin 32.4 PG (26-34); Mean Corpuscular Volume 95.4 fL (80-100); Monocytes Absolute Auto 300 /uL (0-900); Neutrophils Absolute Auto 3100 /uL (1500-7000); Neutrophils Percent Auto 65.6 % (50-75); Platelet Count 230 X10^3/uL (150-400); Red Blood Cell Count 4.04 X10^6/uL (4.0-5.2); Red Cell Distribution Width 13.9 % (11.6-14.8); White Blood Cell Count 4.7 X10^3/uL (4.5-11.0)
[2024-02-04 13:04] LABS: Lactate (Lactic Acid) 0.8 mmol/L (0.7-2.1)
[2024-02-04 13:06] LABS: Alanine Aminotransferase 22 IU/L (<35); Albumin 4.5 g/dL (3.5-5.0); Albumin Globulin Ratio 1.8 (1.0-2.8); Alkaline Phosphatase 57 U/L (38-126); Amylase 62 U/L (30-110); Aspartate Aminotransferase 37 IU/L (14-36); BUN Creatinine Ratio 29.3 (6-22); Bilirubin Total 0.6 mg/dL (0.2-1.3); Blood Urea Nitrogen 17 mg/dL (7-17); Calcium 9.7 mg/dL (8.4-10.2); Carbon Dioxide 30 mmol/L (22-32); Chloride 102 mmol/L (98-107); Estimated Glomerular Filt Rate > 60 mL/min (>60); Globulin 2.5 g/dL (1.7-4.1); Glucose 84 mg/dL (80-110); HEMOLYSIS < 15 (0-50); Lipase 44 U/L (23-300); Potassium 4.4 mmol/L (3.4-5.1); Sodium 139 mmol/L (137-145)
== END ==
PROVIDERS: PCP Family Medicine; Referring Provider Family Medicine; Visit Provider Family Medicine
DX: D64.9 Anemia, unspecified (principal); R10.13 Epigastric pain
CPT/HCPCS: 36415; 80053; 82150; 83605; 83690; 85025

== ENCOUNTER → 2024-02-22 10:58 | Outpatient (CLI) | payer OTHER, SELFPAY ==
--- NOTE | 2024-02-22 10:59 | DI.CT.S_ITS ---
PROCEDURE: CT ABDOMEN W CON INDICATIONS: epigastric pain - post whipple TECHNIQUE: After the administration of intravenous contrast, 5 mm thick sections acquired from the diaphragms to the iliac crests. 5 mm thick coronal and sagittal reformats were acquired. For radiation dose reduction, the following was used: automated exposure control, adjustment of mA and/or kV according to patient size. COMPARISON: None. FINDINGS: Image quality: Diagnostic. Lower Chest: No significant findings. ABDOMEN: Liver: No solid mass. Gallbladder: Absent. Biliary ducts: No biliary dilation. Pancreas: No ductal dilation. Prior Whipple. Spleen: Size is within normal limits. Adrenal Glands: No adrenal nodules. Kidneys and Ureters: No hydronephrosis. No solid mass. No complex renal cystic lesion which requires follow up. Left-sided renal sinus cysts. Stomach and Bowel: Normal colonic caliber, without significant wall thickening. Prior Whipple. Peritoneum: No abnormal intraperitoneal fluid. No free air. Ventral Wall: No hernia. Abdominal Nodes: No retroperitoneal or mesenteric adenopathy by size criteria. Vessels: Aorta and inferior vena cava are normal in size. Bones: No aggressive osseous abnormality. Sacralization of L1. Degenerative disc disease, with opposing endplate sclerosis at L4-5. IMPRESSION: Prior Whipple. No findings to explain the patient's abdominal pain. Dictated by: Bebeto Oakley M.D. on 02/22/2024 at 16:29 Approved by: Bebeto Oakley M.D. on 02/22/2024 at 16:37
== END ==
LOC: CT 10:58
PROVIDERS: PCP Family Medicine; Referring Provider Family Medicine; Visit Provider Family Medicine
DX: N28.1 Cyst of kidney, acquired (principal); R10.13 Epigastric pain; Z90.410 Acquired total absence of pancreas; Z90.49 Acquired absence of other specified parts of digestive tract
CPT/HCPCS: 74160; Q9967

== ENCOUNTER → 2024-04-13 10:36 | Outpatient (CLI) | payer OTHER, SELFPAY ==
--- NOTE | 2024-04-13 10:37 | DI.CT.S_ITS ---
PROCEDURE: CT LE RT WO CON INDICATIONS: ARTHRITIS OF RT ANKLE TECHNIQUE: Noncontrast 1-1.5 mm axial sections acquired from above the knee joint to the bottom of the calcaneus, with coronal and sagittal reformats. COMPARISON: [facility], CT, CT LE RT WO CON, 09/30/2022, 10:15. FINDINGS: Image quality: Excellent. Bones: There is [id number] tricompartmental osteoarthritis in right knee more notably in medial femoral tibial compartment. No acute fracture or dislocation. Severe tibiotalar joint osteoarthritic changes are seen. There is prior surgical instrumentation with postsurgical changes. Near complete loss of tibiotalar joint space, extensive subchondral sclerosis and subcortical cystic changes as well as prominent marginal osteophyte formation is seen. Moderate to severe subtalar joint osteoarthritic changes are noted. Moderate osteoarthritic changes are noted throughout rest of the right foot. No acute fracture or dislocation. Old healed trimalleolar fracture is seen. No suspicious intraosseous lesion. No evidence of avascular necrosis. Soft tissues: There is no soft tissue mass or drainable fluid collection. No abnormal soft tissue calcifications. No significant ankle joint effusion or calcified intra-articular loose bodies. No significant knee joint effusion. No full-thickness muscle or tendon rupture. IMPRESSION: 1. Old healed trimalleolar fracture. No acute fracture or dislocation. No suspicious bony lesions. Postsurgical changes in hindfoot joints. 2. Severe tibiotalar joint osteoarthritis. Moderate to severe subtalar joint osteoarthritis. Moderate osteoarthritic changes throughout rest of the right foot. [id number] tricompartmental osteoarthritis in right knee. 3. No significant joint effusion or calcified intra-articular loose bodies. No soft tissue mass or drainable fluid collection. No abnormal soft tissue calcifications. No full-thickness muscle or tendon rupture. Dictated by: Roberto Carlos Cullen M.D. on 04/13/2024 at 15:05 Approved by: Roberto Carlos Cullen M.D. on 04/13/2024 at 15:08
== END ==
LOC: CT 10:37
PROVIDERS: PCP Family Medicine; Referring Provider Orthopaedic Surgery Foot and Ankle Surgery; Visit Provider Orthopaedic Surgery Foot and Ankle Surgery
DX: M19.071 Primary osteoarthritis, right ankle and foot (principal); M17.11 Unilateral primary osteoarthritis, right knee; Z87.81 Personal history of (healed) traumatic fracture
CPT/HCPCS: 73700

== ENCOUNTER 2024-06-14 07:24 | Day surgery (SDC) | payer MEDICARE, SELFPAY ==
--- NOTE | 2024-06-14 | PATH_ITS ---
[facility] Accession Number: [id number] No. of containers..01 Tissue . 01 Material submitted: . gastrointestinal site - GASTRIC ERYTHEMA . 01 Diagnosis: GASTRIC ERYTHEMA : Gastric mucosa with mild chronic inflammation. No Helicobacter organisms identified. No intestinal metaplasia, dysplasia, or malignancy identified. [facility] 06/18/20241714 Local . 01 Electronically signed: . Jhonny Holder MD, Pathologist NPI- [id number] . 01 Gross description: . Received in formalin with two patient identifiers and 1. Gastric biopsy, are three reeder soft tissue fragments, 0.3-0.4 cm in greatest dimension, submitted in A1. ([id number]) /MRV 06/18/20241714 Local . 01 Microscopic: . GASTRIC ERYTHEMA : An immunohistochemical stain was performed to evaluate for Helicobacter organisms and is negative. The control stains appropriately. * This test was developed and the performance characteristics were validated by [facility]. It has not been cleared or approved by the Food and Drug Administration. . 01 Pathologist provided ICD-10: K29.50 . 01 CPT . 243901, R44178 Specimen Comment: A courtesy copy of this report has been sent to [phone] Performed at: [address] [facility], [place], [place] [id number] MD Jhonny Holder MD Phone: [phone]
[2024-06-14 07:40] VITALS: BP 164/78; PULSE 81; RESP 16; TEMP 36.5; O2SAT 98
[2024-06-14] MEDS: LACTATED RINGERS 1,000 ML 42 ML IV (08:13)
--- NOTE | 2024-06-14 08:40 | PM.PREOP ---
Pre-operative Note Interval Note History & Physical reviewed/Exam performed by Physician: Yes Changes to H&P: No ASA Class (for procedural sedation): II
--- NOTE | 2024-06-14 08:41 | P.OP.EGD_ITS ---
Operative Date/Time/Diagnoses Date of procedure: 06/14/24 Pre-op diagnosis: See indication and findings Procedure & Clinicians Study performed: EGD Indications: If feeling of nausea and dyspepsia though very unclear symptoms. Poorly responsive to medication. History of Whipple procedure in the distant past Surgeon: Deric Pate Procedure Notes Procedure in detail: After informed consent was obtained the patient was placed in left lateral decubitus position. The video upper scope placed into the oropharynx and with the patient's help swallowed into the esophagus. The esophagus stomach and duodenal were carefully examined. On withdrawal, retroflexed view the GE junction was performed. The scope was removed. The patient tolerated the procedure well. Blood loss none Complications none Sedation mac Findings 1. Normal esophagus though with a irregular Z line. No clear evidence of Barretts and no clear evidence of esophagitis. 2. Distal gastrectomy with a gastrointestinal anastomosis. This was wide open. 3. Stomach with intense linear erythema which was biopsied. There were a few very small polyps in the upper body 1 of which was sampled and placed in the same bottle. 4. Normal post resection small bowel. We will await biopsies though I do not expect they will add much to this s ituation. She is to get back in touch with her primary gastrologist Dr. Britton
[2024-06-14 09:03] VITALS: BP 104/49; PULSE 70; RESP 16; TEMP 36.2; O2SAT 98
[2024-06-14 09:08] VITALS: BP 114/44; PULSE 67; RESP 16; O2SAT 98
[2024-06-14 09:13] VITALS: BP 103/52; PULSE 64; RESP 16; O2SAT 98
[2024-06-14 09:18] VITALS: BP 150/63; PULSE 68; RESP 16; TEMP 36.5; O2SAT 98
== END 2024-06-14 09:38 | disposition home or self-care (01) ==
PROVIDERS: PCP Family Medicine; Referring Provider Internal Medicine Gastroenterology; Visit Provider Internal Medicine Gastroenterology
PROC: 0DJ08ZZ Inspection of Upper Intestinal Tract, Via Natural or Artificial Opening Endoscopic (ICD-10-PCS; CPT 43239; principal; 2024-06-14 08:30)
DX: R11.0 Nausea (principal); R10.13 Epigastric pain; K29.50 Unspecified chronic gastritis without bleeding
CPT/HCPCS: 43239; J2704

== ENCOUNTER → 2024-07-20 09:55 | Outpatient (CLI) | payer MEDICARE, SELFPAY ==
[2024-07-20 10:31] LABS: Add Manual Diff / Slide Review NO; Basophils Absolute Auto 100 /uL (0-100); Basophils Percent Auto 1.5 % (0-2); Eosinophils Absolute Auto 200 /uL (0-450); Eosinophils Percent Auto 3.3 % (2-4); Hematocrit 35.5 % (36-46); Hemoglobin 12.1 g/dL (12.0-16.0); Lymphocytes Absolute Auto 1200 /uL (1100-4500); Lymphocytes Percent Auto 24.3 % (25-40); Mean Corpuscular Hemoglobin 32.7 PG (26-34); Mean Corpuscular Volume 96.2 fL (80-100); Monocytes Absolute Auto 200 /uL (0-900); Neutrophils Absolute Auto 3200 /uL (1500-7000); Neutrophils Percent Auto 65.9 % (50-75); Platelet Count 213 X10^3/uL (150-400); White Blood Cell Count 4.8 X10^3/uL (4.5-11.0)
--- NOTE | 2024-07-20 10:42 | EKG_ITS ---
[address] [address] Test Date: 2024-07-20 Pat Name: Sarahi Hollis Department: [facility] Room: Gender: Female Brand Advisor: GEO : [id number] Requested By: Order Number: [id number] Reading MD: Lincoln Webb MD Measurements Intervals [place] Rate: 69 P: 71 [place]: 202 QRS: 32 QRSD: 84 T: 56 QT: 384 QTc: 411 Interpretive Statements Normal sinus rhythm Possible Left atrial enlargement Electronically Signed On 07-20-2024 16:40:50 PDT by Lincoln Webb MD
[2024-07-20 10:43] LABS: Hemoglobin A1C% w Est Avg Glu 5.3 % (4.0-6.0)
[2024-07-20 10:57] LABS: Alanine Aminotransferase 19 IU/L (<35); Albumin 4.2 g/dL (3.5-5.0); Albumin Globulin Ratio 1.8 (1.0-2.8); Alkaline Phosphatase 52 U/L (38-126); Aspartate Aminotransferase 29 IU/L (14-36); BUN Creatinine Ratio 25.8 (6-22); Bilirubin Total 0.6 mg/dL (0.2-1.3); Blood Urea Nitrogen 16 mg/dL (7-17); Calcium 9.3 mg/dL (8.4-10.2); Carbon Dioxide 26 mmol/L (22-32); Chloride 104 mmol/L (98-107); Estimated Glomerular Filt Rate > 60 mL/min (>60); Globulin 2.4 g/dL (1.7-4.1); Glucose 102 mg/dL (80-110); HEMOLYSIS < 15 (0-50); Potassium 4.2 mmol/L (3.4-5.1); Sodium 138 mmol/L (137-145); Total Protein 6.6 g/dL (6.3-8.2)
== END ==
PROVIDERS: PCP Family Medicine; Referring Provider Orthopaedic Surgery Foot and Ankle Surgery; Visit Provider Orthopaedic Surgery Foot and Ankle Surgery
DX: Z01.818 Encounter for other preprocedural examination (principal); R73.9 Hyperglycemia, unspecified; Z01.812 Encounter for preprocedural laboratory examination
CPT/HCPCS: 36415; 80053; 83036; 85025; 93005

== ENCOUNTER → 2024-10-24 11:25 | Outpatient (CLI) | payer OTHER, SELFPAY ==
[2024-10-24 13:25] LABS: Albumin 4.1 g/dL (3.5-5.0); Albumin Globulin Ratio 1.8 (1.0-2.8); Alkaline Phosphatase 48 U/L (38-126); BUN Creatinine Ratio 28.6 (6-22); Bilirubin Total 0.5 mg/dL (0.2-1.3); Blood Urea Nitrogen 16 mg/dL (7-17); Calcium 9.2 mg/dL (8.4-10.2); Carbon Dioxide 26 mmol/L (22-32); Chloride 103 mmol/L (98-107); Estimated Glomerular Filt Rate > 60 mL/min (>60); Globulin 2.3 g/dL (1.7-4.1); Glucose 112 mg/dL (70-99); HEMOLYSIS < 15 (0-50); Lipase 43 U/L (23-300); Potassium 4.4 mmol/L (3.4-5.1); Sodium 138 mmol/L (137-145); Total Protein 6.4 g/dL (6.3-8.2)
[2024-10-24 13:26] LABS: Alanine Aminotransferase 20 IU/L (<35); Aspartate Aminotransferase 28 IU/L (14-36)
[2024-10-25 06:36] LABS: Cancer (Carbohydrate) Ag 19-9 20 U/mL (0-35)
== END ==
LOC: LAB 11:30
PROVIDERS: Internal Medicine; PCP Family Medicine; Referring Provider Family Medicine; Visit Provider Family Medicine
DX: D49.0 Neoplasm of unspecified behavior of digestive system (principal); R11.0 Nausea
CPT/HCPCS: 36415; 80053; 83690; 86301

== ENCOUNTER → 2024-10-25 15:06 | Outpatient (CLI) | payer OTHER, SELFPAY ==
--- NOTE | 2024-10-25 15:07 | DI.MG.S_ITS ---
MM screening mammo unilat RT: 10/25/2024. BI-RADS: 1 CLINICAL: 78-year old female for right screening mammogram. No Tyrer-Cuzick risk score calculation due to the patient's personal history of breast cancer. Patient reports a history of left breast carcinoma diagnosed at age 39. Status-post left mastectomy with radiation therapy and chemotherapy. No first-degree family history of breast cancer. The patient has a left breast implant. The patient had prior bilateral breast biopsies. The patient is status-post reduction mammoplasty. PRIOR EXAMS 10/08/2023, 09/21/2022, 09/18/2021, 09/13/2020. MAMMOGRAPHY TECHNIQUE: 2D and 3D (tomosynthesis) digital mammographic views obtained, with additional images as needed for full coverage. Current study was also evaluated with a Computer Aided Detection (CAD) system. DENSITY Right: C. The breasts are heterogeneously dense, which may obscure small masses. MAMMOGRAPHY FINDINGS Right: No suspicious mass, asymmetry, microcalcification, or other abnormality seen. IMPRESSION: Right * No evidence of malignancy. RECOMMENDATIONS Right * Annual screening mammography. OVERALL ASSESSMENT CATEGORY BI-RADS-1: Negative. The [employer] recommends annual screening mammography beginning at age 40 for women with average risk of breast cancer. ELECTRONICALLY SIGNED: Shad Sierra M.D. on 10/29/2024 at 09:46:37 PM PT Interpreting Station ID: [id number]
== END ==
LOC: MAMMO 15:06
PROVIDERS: PCP Family Medicine; Referring Provider Family Medicine; Visit Provider Family Medicine
DX: Z12.31 Encounter for screening mammogram for malignant neoplasm of breast (principal); R92.331 Mammographic heterogeneous density, right breast; Z90.12 Acquired absence of left breast and nipple; Z85.3 Personal history of malignant neoplasm of breast
CPT/HCPCS: 77063; 77067